=== PATIENT | male | born 1975 | race Caucasian/White ===

== ENCOUNTER 2017-03-24 02:42 | Emergency (ER) | payer OTHER ==
[2017-03-24 03:07] VITALS: BMI 23.1
[2017-03-24] MEDS ORDERED: KETOROLAC TROMETHAMINE 30 MG/1 ML VIAL IVPUSH ONE (03:54)
[2017-03-24] MEDS ORDERED: FAMOTIDINE 20 MG/50 ML IVPB 50 ML IVPB ONE ×2 (03:54→04:11)
[2017-03-24] MEDS ORDERED: ONDANSETRON 4 MG/2 ML VIAL IVPB ONE (03:54)
[2017-03-24 04:05] LABS: BASOPHIL 0.8 % (0-2.0); EOSINOPHIL 6.4 % (0-4.5); MCH 29.9 pg (25.7-33.7); MCHC 33.5 g/dl (32.0-35.9); MEAN PLT VOLUME 10.6 fl (7.5-11.1); NEUTROPHILS 55.5 % (42.8-82.8); PLATELET COUNT 160 K/MM3 (134-434); RDW 12.7 % (11.9-15.9); WHITE BLOOD COUNT 9.9 K/mm3 (4.0-10.0)
[2017-03-24] MEDS ORDERED: KETOROLAC TROMETHAMINE 30 MG/1 ML VIAL ONE (04:10)
[2017-03-24] MEDS ORDERED: ONDANSETRON 4 MG/2 ML VIAL ONE (04:10)
[2017-03-24 05:46] LABS: ALBUMIN 3.6 g/dl (3.4-5.0); ANION GAP 8 (8-16); BILIRUBIN,TOTAL 0.5 mg/dL (0.2-1.0); CALCIUM 8.1 mg/dL (8.5-10.1); CO2 28 mmol/L (21-32); GLUCOSE,RANDOM 93 mg/dL (74-106); SGOT/AST 16 U/L (15-37); SGPT/ALT 27 U/L (12-78); TOT PROT 6.1 g/dl (6.4-8.2)
[2017-03-24 05:47] LABS: ALK PHOS 81 U/L (45-117)
--- NOTE | 2017-03-24 05:53 | PDOC ---
History of Present Illness - General Chief Complaint: Nausea/Vomiting Stated Complaint: VOMITING Time Seen by Provider: 03/24/17 03:05 History Source: Patient Exam Limitations: No Limitations - History of Present Illness Initial Comments: 03/24/17 05:32 Patient is a 41 year old male with no pmhx c/o left sided chest pain since about 1.5 hours prior to presentation. States she was getting ready for bed when he started to get dizzy - which he describes as lightheaded and then vomited. States has had left sided chest pain as he started to vomit. The pain he states is a burning, intermittent, nonreproducible, 7/10 assoc/w nausea. No prior episodes, no recent travel, no leg swelling, no calf pain, neg Fam Hx for ND/CVA/PE/DVT. Mentions that he went to a BBQ at 7in the day but has same food as everyone else but no one else go sick. Denies fever, chills, diarrhea. PMHX: neg PSOCHX: occ Hooka ALL: NKDA GENERAL/CONSTITUTIONAL: [No fever or chills. No weakness. No weight change.] HEAD, EYES, EARS, NOSE AND THROAT: [No change in vision. No ear pain or discharge. No sore throat.] CARDIOVASCULAR: [No chest pain or shortness of breath.] RESPIRATORY: [No cough, wheezing, or hemoptysis.] GASTROINTESTINAL: [No nausea, vomiting, diarrhea or constipation. No rectal bleeding.] GENITOURINARY: [No dysuria, frequency, or change in urination.] MUSCULOSKELETAL: [No joint or muscle swelling or pain. No neck or back pain.] SKIN AND BREASTS: [No rash or easy bruising.] NEUROLOGIC: [No headache, vertigo, loss of consciousness, or loss of sensation.] PSYCHIATRIC: [No depression or anxiety.] ENDOCRINE: [No increased thirst. No abnormal weight change.] HEMATOLOGIC/LYMPHATIC: [No anemia, easy bleeding, or history of blood clots.] ALLERGIC/IMMUNOLOGIC: [No hives or skin allergy. No latex allergy.] GENERAL: [The patient is awake, alert, and fully oriented, in mild distress.] HEAD: [Normal with no signs of trauma.] EYES: [Pupils equal, round and reactive to light, extraocular movements intact, sclera anicteric, conjunctiva clear.] ENT: [Ears normal, nares patent, oropharynx clear without exudates. Moist mucous membranes.] NECK: [Normal range of motion, supple without lymphadenopathy, JVD, or masses.] LUNGS: [Breath sounds equal, clear to auscultation bilaterally. No wheezes, and no crackles.] HEART: [Regular rate and rhythm, normal S1 and S2 without murmur, rub.] ABDOMEN: [Soft, non tender , normoactive bowel sounds. No guarding, no rebound. No masses.] EXTREMITIES: [Normal range of motion, no edema. No clubbing or cyanosis. No cords, erythema, or tenderness.] NEUROLOGICAL: [Cranial nerves II through XII grossly intact. Normal speech, normal gait.] PSYCH: [Normal mood, normal affect.] SKIN: [Warm, Dry, normal turgor, no rashes or lesions noted.] Past History - Past Medical History Allergies/Adverse Reactions: Allergies Allergy/AdvReac Type Severity Reaction Status Date / Time No Known Allergies Allergy Verified 03/24/17 04:17 Home Medications: Ambulatory Orders NK [No Known Home Medication] 03/24/17 - Immunization History Immunization Up to Date: Yes - Psycho/Social/Smoking Cessation Hx Anxiety: No Suicidal Ideation: No Smoking Status: Yes Smoking History: Never smoked Have you smoked in the past 12 months: No Number of Cigarettes Smoked Daily: 1 Cigars Per Day: 0 Information on smoking cessation initiated: No Hx Alcohol Use: No Drug/Substance Use Hx: No Substance Use Type: None *Physical Exam - Vital Signs Last Vital Signs Temp Pulse Resp BP Pulse Ox 97.8 F 82 18 128/99 98 03/24/17 03:02 03/24/17 03:02 03/24/17 03:02 03/24/17 03:02 03/24/17 03:02 ED Treatment Course - LABORATORY CBC & Chemistry Diagram: 03/24/17 04:00 03/24/17 04:00 - ADDITIONAL ORDERS Additional order review: Laboratory Results 03/24/17 04:00 Sodium Cancelled Potassium Cancelled Chloride Cancelled Carbon Dioxide Cancelled Anion Gap Cancelled BUN Cancelled Creatinine Cancelled Creat Clearance w eGFR Cancelled Random Glucose Cancelled Calcium Cancelled Total Bilirubin Cancelled AST Cancelled ALT Cancelled Alkaline Phosphatase Cancelled Creatine Kinase Cancelled Troponin I Cancelled Total Protein Cancelled Albumin Cancelled 03/24/17 04:00 RBC 5.11 MCV 89.0 MCHC 33.5 RDW 12.7 MPV 10.6 Neutrophils % 55.5 Lymphocytes % 28.3 Monocytes % 9.0 Eosinophils % 6.4 H Basophils % 0.8 - RADIOLOGY Radiology Studies Ordered: Category Date Time Status CHEST PA & LAT [RAD] Stat Radiology 03/24/17 03:55 Taken - Medications Given in the ED: ED Medications Discontinued Medications Generic Name Dose Route Start Last Admin Trade Name Samson PRN Reason Stop Dose Admin Famotidine/Sodium Chloride 50 mls @ 100 mls/hr 03/24/17 03:54 03/24/17 04:14 Pepcid 20 Mg Premixed Ivpb - IVPB 03/24/17 04:23 100 mls/hr ONCE ONE Administration Ketorolac Tromethamine 30 mg 03/24/17 03:54 03/24/17 04:14 Toradol Injection - IVPUSH 03/24/17 03:55 30 mg ONCE ONE Administration Ondansetron HCl 4 mg 03/24/17 03:54 03/24/17 04:14 Zofran Injection IVPB 03/24/17 03:55 4 mg ONCE ONE Administration Medical Decision Making - Medical Decision Making 03/24/17 05:53 Patient is a 41 year old male with no pmhx c/o left sided chest pain since about 1.5 hours prior to presentation. Patient has burning pain with vomiting suggestive of GI chest pain. will get labs and treat with pepcid, toradol, IVF re-eval EKG SR rate 70, NAD, (-) ST-T wave changes I discussed the physical exam findings, ancillary test results and final diagnoses with the patient. I answered all of the patient's questions. The patient was satisfied with the care received and felt comfortable with the discharge plan and treatment plan. The Patient agrees to follow up with the primary care physician within 24-72 hours. *DC/Admit/Observation/Transfer Diagnosis at time of Disposition: Chest pain Qualifiers: Chest pain type: unspecified Qualified Code(s): R07.9 - Chest pain, unspecified - Discharge Dispostion Disposition: HOME Condition at time of disposition: Stable - Patient Instructions Printed Discharge Instructions: DI for Chest Pain Additional Instructions: Your Discharge Instructions: You must call primary care physician within 24 hours to arrange follow-up. Return to the Emergency Department with any new, persistent or worsening symptoms, for fever, chills, SOB, dizziness or any other concerning changes that may occur.
[2017-03-24 06:28] VITALS: BP 118/86; PULSE 64; TEMP 97.6
[2017-03-24 06:34] LABS: TROPONIN I < 0.02 ng/ml (0.00-0.05)
--- NOTE | 2017-03-24 10:22 | EKG ---
Test Reason : Blood Pressure : / mmHG Vent. Rate : 070 BPM Atrial Rate : 070 BPM P-R Int : 150 ms QRS Dur : 090 ms QT Int : 384 ms P-R-T Axes : 032 -18 046 degrees QTc Int : 414 ms NORMAL SINUS RHYTHM NORMAL ECG NO PREVIOUS ECGS AVAILABLE Confirmed by VINICIUS MORA MD ([id number]) on 03/24/2017 10:22:19 AM Referred By: Confirmed By:VINICIUS MORA MD
== END 2017-03-24 06:28 | disposition home or self-care (01) ==
LOC: JER 02:42
PROC: 3E033GC Introduction of Other Therapeutic Substance into Peripheral Vein, Percutaneous Approach (ICD-10-PCS; principal; 2017-03-24)
PROC: 3E0333Z Introduction of Anti-inflammatory into Peripheral Vein, Percutaneous Approach (ICD-10-PCS; 2017-03-24)
PROC: 3E033GC Introduction of Other Therapeutic Substance into Peripheral Vein, Percutaneous Approach (ICD-10-PCS; 2017-03-24)
DX: R07.89 Other chest pain (principal)
CPT/HCPCS: 36415; 71020-TC; 80053; 82550; 84484; 85025; 93005; 93010; 96365; 96375; 99283-25

== ENCOUNTER 2017-11-02 22:56 | Emergency (ER) | payer OTHER ==
[2017-11-02 23:10] VITALS: BP 127/82; PULSE 95; TEMP 98.1; BMI 22.4
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
[2017-11-03] MEDS ORDERED: METHOCARBAMOL 500 MG TABLET PO ONE (01:54)
[2017-11-03] MEDS ORDERED: IBUPROFEN 600 MG TABLET (FP) PO ONE (01:54)
[2017-11-03] MEDS ORDERED: IBUPROFEN 400 MG TABLET (FP) PO ONE (02:13)
[2017-11-03] MEDS ORDERED: METHOCARBAMOL 500 MG TABLET ONE (02:13)
== END 2017-11-03 02:25 | disposition home or self-care (01) ==
LOC: JER 22:56
DX: M54.5 Low back pain (principal); V43.52XA Car driver injured in collision with other type car in traffic accident, initial encounter; Y92.414 Local residential or business street as the place of occurrence of the external cause; Y93.89 Activity, other specified; Y99.8 Other external cause status
CPT/HCPCS: 99282-25

== ENCOUNTER 2022-06-28 23:47 | Emergency (ER) | payer OTHER ==
[2022-06-28 23:51] VITALS: BP 125/80; PULSE 84; RESP 18; TEMP 98; BMI 22.1
[2022-06-29] MEDS ORDERED: SUCRALFATE 1 GM TABLET (FP) PO ONE (01:08)
[2022-06-29] MEDS ORDERED: FAMOTIDINE 20 MG/50 ML IVPB 20 MG/50 ML MG IVPB ONE ×2 (01:08→01:17)
[2022-06-29] MEDS ORDERED: ACETAMINOPHEN 1000 MG/100 ML BAG IVPB ONE (01:08)
[2022-06-29] MEDS ORDERED: MAG HYDROX/AL HYDROX/SIMETH 30 ML UNIT-DOSE CUP PO ONE (01:08)
[2022-06-29] MEDS ORDERED: MAG HYDROX/AL HYDROX/SIMETH 30 ML UNIT-DOSE CUP ONE (01:12)
[2022-06-29] MEDS ORDERED: SUCRALFATE 1 GM TABLET (FP) ONE (01:12)
[2022-06-29] MEDS ORDERED: ACETAMINOPHEN INJECTION 100 ML IVPB ONE (01:17)
[2022-06-29 01:23] LABS: BASO % 0.4 % (0-2.0); EOS % 5.8 % (0-4.5); HEMATOCRIT 41.9 % (35.4-49); HEMOGLOBIN 14.1 GM/dL (11.7-16.9); LYMPH % 26.5 % (8-40); MCH 29.8 pg (25.7-33.7); MCHC 33.7 g/dl (32.0-35.9); MEAN CELL VOLUME 88.4 fl (80-96); MEAN PLT VOLUME 9.7 fl (7.5-11.1); MONO % 14.1 % (3.8-10.2); NEUT % 53.2 % (42.8-82.8); PLATELET COUNT 171 10^3/uL (134-434); RBC 4.75 M/mm3 (4.00-5.60); RDW 12.5 % (11.9-15.9); WHITE BLOOD COUNT 7.8 K/mm3 (4.0-10.0)
[2022-06-29 01:30] LABS: INR 1.11 (0.83-1.09); PROTHROMBIN TIME (PATIENT) 12.8 SEC (9.7-13.0)
[2022-06-29 01:33] LABS: ACTIVATED PTT 38.8 SECONDS (25.2-36.5)
[2022-06-29 01:52] LABS: BLOOD UREA NITROGEN 17.4 mg/dL (7-18)
[2022-06-29 01:53] LABS: ALBUMIN 3.7 g/dl (3.4-5.0); CALCIUM 9.2 mg/dL (8.5-10.1)
[2022-06-29 01:57] LABS: BILIRUBIN,TOTAL 0.4 mg/dL (0.2-1); CREATININE 1.1 mg/dL (0.55-1.3); TOT PROT 6.8 g/dl (6.4-8.2)
== END 2022-06-29 02:50 | disposition home or self-care (01) ==
LOC: JER 23:47
PROC: 3E0333Z Introduction of Anti-inflammatory into Peripheral Vein, Percutaneous Approach (ICD-10-PCS; principal; 2022-06-28)
PROC: 3E033GC Introduction of Other Therapeutic Substance into Peripheral Vein, Percutaneous Approach (ICD-10-PCS; 2022-06-28)
DX: R07.89 Other chest pain (principal)
CPT/HCPCS: 36415; 71045-TC-FY; 80053; 83690; 84484; 85025; 85610; 85730; 93005; 93010; 99284-25